=== PATIENT | female | born 1960 | race Caucasian/White ===

== ENCOUNTER 2022-11-15 13:47 | Emergency (ER) | payer BC ==
[~2022-11-15] VITALS: Ht 162.6 cm; Wt 63.5 kg
[2022-11-15] MEDS ORDERED: IBUPROFEN 600 MG TABLET PO ONE (14:30)
[2022-11-15] MEDS ORDERED: PREDNISONE 20 MG TABLET PO ONE (14:30)
[2022-11-15] MEDS ORDERED: AMOX/CLAV 875/125MG TAB PO ONE (14:30)
[2022-11-15] MEDS ORDERED: PRED20TA3 PO ×2 (14:38→16:43)
[2022-11-15] MEDS ORDERED: AMOX875T2 PO ×2 (14:38→16:43)
[2022-11-15 16:35] VITALS: BP 122/79
== END 2022-11-15 16:52 | disposition home or self-care (01) ==
LOC: EDH 13:47
DX: H83.2X2 Labyrinthine dysfunction, left ear (principal); H69.92 Unspecified Eustachian tube disorder, left ear; H90.42 Sensorineural hearing loss, unilateral, left ear, with unrestricted hearing on the contralateral side; Z90.49 Acquired absence of other specified parts of digestive tract

== ENCOUNTER 2022-11-29 12:23 | Emergency (ER) | payer BC ==
[~2022-11-29] VITALS: Ht 162.6 cm; Wt 63.5 kg
[2022-11-29 12:24] VITALS: BP 125/92
== END 2022-11-29 12:32 | disposition home or self-care (01) ==
LOC: EDH 12:23
DX: R11.2 Nausea with vomiting, unspecified (principal); R10.9 Unspecified abdominal pain; Z53.21 Procedure and treatment not carried out due to patient leaving prior to being seen by health care provider
CPT/HCPCS: 99281